=== PATIENT | male | born 1995 | race Caucasian/White ===

== ENCOUNTER 2022-11-21 10:05 | Emergency (ER) | payer SELFPAY ==
[~2022-11-21] VITALS: Ht 147.3 cm; Wt 68.0 kg
[2022-11-21 10:08] VITALS: TEMP 98.7; O2SAT 100
[2022-11-21 10:15] VITALS: BP 127/78; PULSE 57; RESP 16
[2022-11-21] MEDS ORDERED: HYDROCODONE/ACETAMINOPHEN 5/325MG TABLET PO ONE (10:15)
[2022-11-21] MEDS ORDERED: TETANUS, DIPHTHERIA, PERTUSSIS VAC/PF 0.5ML (>10YR OLD) IM ONE (10:15)
[2022-11-21] MEDS ORDERED: KETOROLAC 30MG/ML VIAL IM ONE (10:15)
[2022-11-21] MEDS ORDERED: LIDOCAINE HCL/PF 1% 10 MG/ML 5ML VIAL INFIL ONE (10:15)
[2022-11-21] MEDS ORDERED: BACITRACIN ZINC OINT UDPKT TOP ONE (10:15)
[2022-11-21] MEDS ORDERED: CEPHALEXIN 250MG CAPSULE PO ONE (10:30)
[2022-11-21] MEDS ORDERED: CEPH500T MT (11:58)
[2022-11-21] MEDS ORDERED: NAPR500T7 MT (11:58)
[2022-11-21] MEDS ORDERED: TOPUD MT (11:58)
== END 2022-11-21 12:17 | disposition home or self-care (01) ==
LOC: ER 10:06
DX: S61.301A Unspecified open wound of left index finger with damage to nail, initial encounter (principal); X58.XXXA Exposure to other specified factors, initial encounter; Y93.89 Activity, other specified; Y92.89 Other specified places as the place of occurrence of the external cause; Y99.8 Other external cause status
CPT/HCPCS: 73140; 90715; 12001; 90471; 96372; 99284; J1885; J3490; Z7610 ×4